=== PATIENT | male | born 1940 | race African-American/Black ===

== ENCOUNTER → 2017-06-06 | Outpatient (CLI) | payer BC, MEDICARE ==
[~2017-06-06] MED LIST: AMLO10TA80 PO; ASPI-1159 PO; FOLI-43 PO; FOSI20TA3 PO; FURO80TA87 PO; GUAN1TAB PO; MAGN500C4 PO; OMEP20TA15 PO; POTA20TA12 PO; RIVA10TA PO; SERT25TA74 PO; SPIR25TA4 PO; ZET10 PO; amiodarone
== END | disposition home or self-care (01) ==
LOC: PVL 13:04
DX: I25.10 Atherosclerotic heart disease of native coronary artery without angina pectoris (principal); E78.5 Hyperlipidemia, unspecified; I12.9 Hypertensive chronic kidney disease with stage 1 through stage 4 chronic kidney disease, or unspecified chronic kidney disease; N18.9 Chronic kidney disease, unspecified
CPT/HCPCS: 93922

== ENCOUNTER → 2017-09-25 | Outpatient (CLI) | payer BC, MEDICARE ==
[~2017-09-25] MED LIST changes: -SPIR25TA4 PO; +SPIR25TA6 PO
== END | disposition home or self-care (01) ==
LOC: PVL 12:45
DX: I73.9 Peripheral vascular disease, unspecified (principal); E78.5 Hyperlipidemia, unspecified; I11.0 Hypertensive heart disease with heart failure; I50.9 Heart failure, unspecified; E11.9 Type 2 diabetes mellitus without complications; Z79.82 Long term (current) use of aspirin; Z79.899 Other long term (current) drug therapy
CPT/HCPCS: 93923

== ENCOUNTER 2019-09-15 15:46 | Inpatient (IN) | payer BC, MEDICARE ==
[~2019-09-15] VITALS: Ht 182.9 cm; Wt 111.1 kg
[~2019-09-15 15:46] MED LIST changes: -ASPI-1159 PO; +ASPI-1497 PO; +EZET10TA13 PO; -FOSI20TA3 PO; +FOSI20TA66 PO; -ZET10 PO
[2019-09-15] MEDS ORDERED: SODIUM CHLORIDE 0.9% 1,000 ML IV ONE (16:12)
[2019-09-15] MEDS ORDERED: VANCOMYCIN 1 G PREMIX 200 ML IV ONE (16:15)
[2019-09-15] MEDS ORDERED: PIPERACILLIN/TAZ 3.375G PREMIX 50 ML IV ONE (16:15)
[2019-09-15 16:28] LABS: CLARITY URINE CLEAR (CLEAR); COLOR URINE YELLOW (YELLOW); KETONES URINE NEGATIVE (NEGATIVE); LEUKOCYTE ESTERASE URINE NEGATIVE (NEGATIVE); NITRITE URINE NEGATIVE (NEGATIVE); OCCULT BLOOD URINE 1+ (NEGATIVE); PROTEIN URINE 2+ (NEGATIVE); SPECIFIC GRAVITY URINE 1.016 (1.005-1.030); UROBILINOGEN URINE 0.2 E.U./dL (0.2-1.0)
[2019-09-15 16:49] LABS: BASOPHILS % 0.6 % (0.0-2.0); EOSINOPHILS % 0.5 % (0.0-5.0); HEMOGLOBIN. 11.7 g/dL (14.0-18.0); LYMPHOCYTES % 7.6 % (20.0-50.0); MEAN CORPUSCULAR HEMOGLOBIN 30.4 pg (28.0-32.0); MEAN CORPUSCULAR VOLUME 91.2 fL (80.0-94.0); MEAN PLATELET VOLUME 9.1 fl (7.4-10.4); MONOCYTES % 7.9 % (2.0-8.0); NEUTROPHILS % 83.4 % (40.0-76.0); PLATELET 248 x1000/uL (130-400); RED BLOOD CELL COUNT 3.84 mill/uL (4.7-6.1); RED CELL DISTRIBUTION WIDTH 14.1 % (11.6-14.6)
[2019-09-15 16:53] LABS: CHLORIDE 99 mEq/L (98-107)
[2019-09-15 16:55] LABS: INR 1.4; PROTHROMBIN TIME 14.3 sec (9.6-11.0)
[2019-09-15 17:00] LABS: BETA HYDROXYBUTYRATE 0.4 mMol/L (0.0-0.3)
[2019-09-15] MEDS ORDERED: INSULIN REGULAR (HUMULIN R) 300UNITS/3ML SUBCUT NR (18:45)
[2019-09-15] MEDS ORDERED: PIPERACILLIN/TAZOBACTAM 3.375 G in DEXT 5% WATER 100 ML IV SCH (19:15)
[2019-09-15] MEDS ORDERED: INSULIN GLARGINE UD 100 UNITS/ML SYR SUBCUT ONE (19:15)
[2019-09-15] MEDS ORDERED: DEXTROSE 50% WATER 50ML SYRINGE IV PRN (19:15)
[2019-09-15] MEDS ORDERED: ONDANSETRON HCL 4MG/2ML INJ IV PRN (19:15)
[2019-09-15] MEDS ORDERED: VANCOMYCIN 500 MG PREMIX 100 ML IV SCH ×2 (20:00→23:45)
[2019-09-15] MEDS ORDERED: LORAZEPAM 2MG/ML CPJ IV ONE (20:00)
[2019-09-15] MEDS: INSULIN LISPRO 100 UNITS/ML SUBCUT SCH (20:54)
[2019-09-15] MEDS ORDERED: INSULIN GLARGINE UD 100 UNITS/ML SYR SUBCUT SCH (21:00)
[2019-09-15 21:49] VITALS: BP 159/66
[2019-09-15] MEDS: BLOOD SUGAR DIAGNOSTIC STRIP TEST SCH (21:57)
[2019-09-15 22:27] VITALS: BP 159/66
[2019-09-15] MEDS ORDERED: PIPERACILLIN/TAZOBACTAM 2.25 G in DEXTROSE 5% WATER 50 ML IV SCH (23:00)
[2019-09-15] MEDS: SODIUM CHLORIDE 0.9% 1,000 ML IV SCH (23:49)
[2019-09-15] MEDS: INSULIN GLARGINE UD 100 UNITS/ML SYR SUBCUT SCH (23:49)
[2019-09-16] VITALS: BP 182/83
[2019-09-16] MEDS: CLONIDINE 0.1MG TABLET PO PRN ×2 (00:38→23:53)
[2019-09-16] MEDS: PIPERACILLIN/TAZOBACTAM 2.25 G in DEXTROSE 5% WATER 50 ML IV SCH ×5 (00:38→23:30)
[2019-09-16] MEDS ORDERED: AMLO5TAB88 PO (01:47)
[2019-09-16] MEDS ORDERED: FURO80TA3 PO (01:47)
[2019-09-16] MEDS ORDERED: TOPUD MT (01:59)
[2019-09-16] MEDS ORDERED: ROSU20TA2 PO (01:59)
[2019-09-16] MEDS ORDERED: SILV50CR31 TP (01:59)
[2019-09-16] MEDS ORDERED: MAGN64TA7 PO (01:59)
[2019-09-16] MEDS ORDERED: FOLI-43 PO (01:59)
[2019-09-16] MEDS ORDERED: FOSI40TA5 PO (01:59)
[2019-09-16] MEDS ORDERED: AMI2 PO (01:59)
[2019-09-16] MEDS ORDERED: CLON1PAT12 TP (01:59)
[2019-09-16 04:00] VITALS: BP 156/75
[2019-09-16] MEDS: ACETAMINOPHEN 325MG TABLET PO PRN ×2 (04:39→23:52)
[2019-09-16] MEDS: INSULIN LISPRO 100 UNITS/ML SUBCUT SCH ×4 (06:31→21:46)
[2019-09-16] MEDS: BLOOD SUGAR DIAGNOSTIC STRIP TEST SCH ×4 (06:41→21:34)
[2019-09-16 06:45] LABS: HEMATOCRIT. 32.4 % (42.0-52.0); HEMOGLOBIN. 10.9 g/dL (14.0-18.0); MEAN CORPUSCULAR HEMOGLOBIN 30.4 pg (28.0-32.0); MEAN PLATELET VOLUME 9.3 fl (7.4-10.4); PLATELET 213 x1000/uL (130-400); RED BLOOD CELL COUNT 3.59 mill/uL (4.7-6.1); RED CELL DISTRIBUTION WIDTH 14.5 % (11.6-14.6)
[2019-09-16 07:28] LABS: *AMPHETAMINES SCREEN URINE NEGATIVE (NEGATIVE); *BARBITURATES SCREEN URINE NEGATIVE (NEGATIVE); *BENZODIAZEPINES SCREEN URINE NEGATIVE (NEGATIVE); *COCAINE SCREEN URINE NEGATIVE (NEGATIVE); METHADONE URINE SCREEN NEGATIVE (NEGATIVE)
[2019-09-16 07:29] LABS: CANNABINOID URINE SCREEN NEGATIVE (NEGATIVE); OPIATES URINE SCREEN PRESUMTIVE POSITIVE (NEGATIVE); PHENCYCLIDINE URINE SCREEN NEGATIVE (NEGATIVE)
[2019-09-16 08:00] VITALS: BP 153/63
[2019-09-16] MEDS ORDERED: POTASSIUM CHLORIDE 20MEQ TABLET SR PO NR (08:30)
[2019-09-16] MEDS ORDERED: ENOXAPARIN 40MG/0.4ML SYR SUBCUT SCH (09:00)
[2019-09-16] MEDS ORDERED: VANCOMYCIN 1 G PREMIX 200 ML IV NR (09:30)
[2019-09-16] MEDS: INSULIN GLARGINE UD 100 UNITS/ML SYR SUBCUT SCH ×2 (09:42→21:46)
[2019-09-16] MEDS: AMLODIPINE 10MG TABLET PO SCH (09:43)
[2019-09-16 12:00] VITALS: BP 139/55
[2019-09-16] MEDS: FUROSEMIDE 100MG/10ML VIAL IVP SCH ×2 (12:59→17:20)
[2019-09-16] MEDS: AMIODARONE HCL 200 MG TABLET PO SCH (12:59)
[2019-09-16 16:00] VITALS: BP 152/68
[2019-09-16] MEDS: SODIUM CHLORIDE 0.9% 1,000 ML IV SCH (17:24)
[2019-09-16 20:00] VITALS: BP 151/73
[2019-09-16] MEDS: HYDRALAZINE HCL 10MG TABLET PO SCH (21:45)
[2019-09-17] VITALS: BP 164/63
[2019-09-17] MEDS: SODIUM CHLORIDE 0.9% 1,000 ML IV SCH (02:39)
[2019-09-17 04:00] VITALS: BP 148/69
[2019-09-17] MEDS: PIPERACILLIN/TAZOBACTAM 2.25 G in DEXTROSE 5% WATER 50 ML IV SCH ×4 (05:22→23:44)
[2019-09-17] MEDS: BLOOD SUGAR DIAGNOSTIC STRIP TEST SCH ×4 (06:13→21:13)
[2019-09-17] MEDS ORDERED: NITROGLYCERIN 0.2MG/HR PATCH TOP ONE (06:15)
[2019-09-17] MEDS: INSULIN LISPRO 100 UNITS/ML SUBCUT SCH ×4 (06:25→21:15)
[2019-09-17] MEDS ORDERED: VANCOMYCIN HCL 1 GM/VIAL ONE (06:57)
[2019-09-17] MEDS ORDERED: BUPIVACAINE HCL/PF 0.25% (2.5MG/ML) 10ML ONE (06:57)
[2019-09-17] MEDS ORDERED: BACITRACIN 50,000 UNITS/VIAL ONE (06:57)
[2019-09-17] MEDS ORDERED: LIDOCAINE HCL 1% 20ML VIAL (Pyxis) INJ ONE (06:57)
[2019-09-17] MEDS ORDERED: HYDROMORPHONE HCL/PF 2MG/ML (OR) ONE (07:28)
[2019-09-17] MEDS ORDERED: MIDAZOLAM HCL 5 MG/5 ML VIAL ONE (07:28)
[2019-09-17 07:52] LABS: BASOPHILS % 0.3 % (0.0-2.0); EOSINOPHILS % 1.1 % (0.0-5.0); HEMATOCRIT. 32.9 % (42.0-52.0); HEMOGLOBIN. 10.9 g/dL (14.0-18.0); LYMPHOCYTES % 7.2 % (20.0-50.0); MEAN CORPUSCULAR VOLUME 90.9 fL (80.0-94.0); MEAN PLATELET VOLUME 9.2 fl (7.4-10.4); MONOCYTES % 8.8 % (2.0-8.0); NEUTROPHILS % 82.6 % (40.0-76.0); PLATELET 236 x1000/uL (130-400); RED BLOOD CELL COUNT 3.62 mill/uL (4.7-6.1); RED CELL DISTRIBUTION WIDTH 14.3 % (11.6-14.6)
[2019-09-17 07:57] LABS: CHLORIDE 110 mEq/L (98-107)
[2019-09-17 08:11] LABS: LDL CHOLESTEROL 24 mg/dL (5-100)
[2019-09-17 08:13] LABS: HDL CHOLESTEROL 19 mg/dL (40-59); T4 FREE 1.31 ng/dL (0.76-1.46)
[2019-09-17] MEDS ORDERED: MEPERIDINE HCL/PF 25MG/ML CPJ IV PRN (08:15)
[2019-09-17] MEDS ORDERED: LABETALOL 5MG/ML SYR 20 MG/4 ML SYRINGE IV PRN (08:15)
[2019-09-17] MEDS ORDERED: ONDANSETRON HCL 4MG/2ML INJ IV PRN (08:15)
[2019-09-17] MEDS ORDERED: HYDROMORPHONE HCL/PF 2MG/ML CPJ IV PRN (08:15)
[2019-09-17] MEDS ORDERED: POTASSIUM CHLORIDE 20MEQ/PACKET PO NR (08:45)
[2019-09-17 08:56] LABS: FOLIC ACID (FOLATE) SERUM >20 ng/mL ng/mL (>5.38)
[2019-09-17] MEDS: HYDRALAZINE HCL 10MG TABLET PO SCH ×3 (09:00→21:14)
[2019-09-17] MEDS: AMLODIPINE 10MG TABLET PO SCH (09:00)
[2019-09-17] MEDS: AMIODARONE HCL 200 MG TABLET PO SCH (09:00)
[2019-09-17 09:09] LABS: VITAMIN B12 SERUM 1593 pg/mL (211-911)
[2019-09-17] MEDS ORDERED: POTASSIUM CHLORIDE INJ 40 MEQ in DEXT 5% WATER 250 ML IV NR (10:00)
[2019-09-17] MEDS: FUROSEMIDE 100MG/10ML VIAL IVP SCH ×2 (10:36→17:58)
[2019-09-17] MEDS: INSULIN GLARGINE UD 100 UNITS/ML SYR SUBCUT SCH ×2 (10:37→21:15)
[2019-09-17 12:00] VITALS: BP 113/67
[2019-09-17 13:19] LABS: PLATELET ESTIMATE NORMAL
[2019-09-17 16:00] VITALS: BP 155/77
[2019-09-17] MEDS ORDERED: TETANUS, DIPHTHERIA, PERTUSSIS VAC/PF 0.5ML (>7YR OLD) IM ONE (16:30)
[2019-09-17 20:00] VITALS: BP 143/74
[2019-09-18] VITALS: BP 157/65
[2019-09-18] MEDS: SODIUM CHLORIDE 0.9% 1,000 ML IV SCH (02:27)
[2019-09-18 04:00] VITALS: BP 139/73
[2019-09-18] MEDS: HYDRALAZINE HCL 10MG TABLET PO SCH ×3 (05:37→21:28)
[2019-09-18] MEDS: PIPERACILLIN/TAZOBACTAM 2.25 G in DEXTROSE 5% WATER 50 ML IV SCH ×3 (05:37→17:10)
[2019-09-18] MEDS: INSULIN LISPRO 100 UNITS/ML SUBCUT SCH ×4 (06:54→20:40)
[2019-09-18] MEDS: BLOOD SUGAR DIAGNOSTIC STRIP TEST SCH ×4 (06:54→20:09)
[2019-09-18 07:47] LABS: BASOPHILS % 0.6 % (0.0-2.0); EOSINOPHILS % 1.1 % (0.0-5.0); HEMATOCRIT. 32.3 % (42.0-52.0); HEMOGLOBIN. 10.8 g/dL (14.0-18.0); LYMPHOCYTES % 7.6 % (20.0-50.0); MEAN CORPUSCULAR HEMOGLOBIN 30.1 pg (28.0-32.0); MEAN CORPUSCULAR VOLUME 89.9 fL (80.0-94.0); MEAN PLATELET VOLUME 9.3 fl (7.4-10.4); MONOCYTES % 6.2 % (2.0-8.0); NEUTROPHILS % 84.5 % (40.0-76.0); PLATELET 248 x1000/uL (130-400); RED BLOOD CELL COUNT 3.59 mill/uL (4.7-6.1); RED CELL DISTRIBUTION WIDTH 14.3 % (11.6-14.6)
[2019-09-18 08:00] VITALS: BP 137/81
[2019-09-18] MEDS: FUROSEMIDE 100MG/10ML VIAL IVP SCH ×2 (08:54→17:10)
[2019-09-18] MEDS: AMIODARONE HCL 200 MG TABLET PO SCH (08:55)
[2019-09-18] MEDS: ASPIRIN 81MG TABLET PO SCH (08:55)
[2019-09-18] MEDS: POTASSIUM CHLORIDE 20MEQ TABLET SR PO SCH ×3 (08:55→15:23)
[2019-09-18] MEDS: AMLODIPINE 10MG TABLET PO SCH (08:55)
[2019-09-18] MEDS: INSULIN GLARGINE UD 100 UNITS/ML SYR SUBCUT SCH ×2 (10:17→21:28)
[2019-09-18 12:00] VITALS: BP 153/72
[2019-09-18] MEDS: HYDROCODONE/ACETAMINOPHEN 5/325MG TABLET PO PRN ×2 (12:37→21:27)
[2019-09-18 16:00] VITALS: BP 123/61
[2019-09-18 20:00] VITALS: BP 163/76
[2019-09-19] VITALS: BP 157/76
[2019-09-19] MEDS: PIPERACILLIN/TAZOBACTAM 2.25 G in DEXTROSE 5% WATER 50 ML IV SCH ×4 (00:53→17:07)
[2019-09-19 04:00] VITALS: BP 154/72
[2019-09-19] MEDS: SODIUM CHLORIDE 0.9% 1,000 ML IV SCH ×2 (04:50→23:00)
[2019-09-19] MEDS: HYDRALAZINE HCL 10MG TABLET PO SCH ×3 (06:23→22:00)
[2019-09-19] MEDS: BLOOD SUGAR DIAGNOSTIC STRIP TEST SCH ×4 (06:51→20:35)
[2019-09-19] MEDS: INSULIN LISPRO 100 UNITS/ML SUBCUT SCH ×4 (06:51→21:34)
[2019-09-19 07:07] LABS: BASOPHILS % 0.5 % (0.0-2.0); HEMATOCRIT. 32.9 % (42.0-52.0); HEMOGLOBIN. 10.9 g/dL (14.0-18.0); MEAN CORPUSCULAR HEMOGLOBIN 29.9 pg (28.0-32.0); MEAN CORPUSCULAR VOLUME 89.9 fL (80.0-94.0); MEAN PLATELET VOLUME 9.1 fl (7.4-10.4); MONOCYTES % 7.1 % (2.0-8.0); NEUTROPHILS % 80.4 % (40.0-76.0); PLATELET 276 x1000/uL (130-400); RED BLOOD CELL COUNT 3.66 mill/uL (4.7-6.1)
[2019-09-19 08:00] VITALS: BP 156/62
[2019-09-19] MEDS: ASPIRIN 81MG TABLET PO SCH (08:29)
[2019-09-19] MEDS: FUROSEMIDE 40MG/4ML VIAL IVP SCH ×2 (08:29→17:07)
[2019-09-19] MEDS: AMLODIPINE 10MG TABLET PO SCH (08:29)
[2019-09-19] MEDS: AMIODARONE HCL 200 MG TABLET PO SCH (08:29)
[2019-09-19] MEDS ORDERED: POTASSIUM CHLORIDE INJ 40 MEQ in DEXT 5% WATER 250 ML IV SCH (11:00)
[2019-09-19] MEDS: POTASSIUM CHLORIDE 10MEQ TABLET SR PO SCH (11:02)
[2019-09-19] MEDS: INSULIN GLARGINE UD 100 UNITS/ML SYR SUBCUT SCH ×2 (11:03→21:35)
[2019-09-19] MEDS: CLONIDINE 0.1MG TABLET PO PRN ×2 (11:47→12:20)
[2019-09-19 12:00] VITALS: BP 179/81
[2019-09-19] MEDS: CLONIDINE 0.2MG TABLET PO SCH ×2 (14:00→22:00)
[2019-09-19 16:00] VITALS: BP 150/76
[2019-09-19] MEDS ORDERED: MAGNESIUM 2 G PREMIX 50 ML IV NR (20:00)
[2019-09-19 21:44] VITALS: BP 139/67
[2019-09-20] MEDS: PIPERACILLIN/TAZOBACTAM 2.25 G in DEXTROSE 5% WATER 50 ML IV SCH ×4 (00:24→17:19)
[2019-09-20] MEDS: HYDRALAZINE HCL 10MG TABLET PO SCH ×4 (00:24→20:45)
[2019-09-20] MEDS: CLONIDINE 0.2MG TABLET PO SCH ×4 (00:24→20:44)
[2019-09-20 00:39] VITALS: BP 175/77
[2019-09-20 04:00] VITALS: BP 157/70
[2019-09-20 06:13] LABS: BASOPHILS % 0.4 % (0.0-2.0); EOSINOPHILS % 2.3 % (0.0-5.0); HEMATOCRIT. 31.5 % (42.0-52.0); HEMOGLOBIN. 10.5 g/dL (14.0-18.0); LYMPHOCYTES % 11.3 % (20.0-50.0); MEAN CORPUSCULAR HEMOGLOBIN 29.9 pg (28.0-32.0); MEAN CORPUSCULAR VOLUME 89.5 fL (80.0-94.0); MEAN PLATELET VOLUME 8.9 fl (7.4-10.4); MONOCYTES % 7.4 % (2.0-8.0); NEUTROPHILS % 78.6 % (40.0-76.0); PLATELET 290 x1000/uL (130-400); RED BLOOD CELL COUNT 3.52 mill/uL (4.7-6.1); RED CELL DISTRIBUTION WIDTH 14.1 % (11.6-14.6)
[2019-09-20] MEDS: BLOOD SUGAR DIAGNOSTIC STRIP TEST SCH ×4 (06:17→20:45)
[2019-09-20] MEDS: INSULIN LISPRO 100 UNITS/ML SUBCUT SCH ×4 (06:18→20:47)
[2019-09-20 08:00] VITALS: BP 149/68
[2019-09-20] MEDS: ASPIRIN 81MG TABLET PO SCH (08:40)
[2019-09-20] MEDS: AMIODARONE HCL 200 MG TABLET PO SCH (08:40)
[2019-09-20] MEDS: AMLODIPINE 10MG TABLET PO SCH (08:40)
[2019-09-20] MEDS: POTASSIUM CHLORIDE 10MEQ TABLET SR PO SCH (08:40)
[2019-09-20] MEDS: FUROSEMIDE 40MG/4ML VIAL IVP SCH ×2 (08:40→17:18)
[2019-09-20] MEDS: INSULIN GLARGINE UD 100 UNITS/ML SYR SUBCUT SCH ×2 (10:00→21:25)
[2019-09-20 12:00] VITALS: BP 113/74
[2019-09-20 16:00] VITALS: BP 159/75
[2019-09-20] MEDS: POTASSIUM CHLORIDE 20MEQ TABLET SR PO SCH (17:18)
[2019-09-20 20:00] VITALS: BP 149/72
[2019-09-20] MEDS: ENOXAPARIN 30MG/0.3ML SYR SUBCUT SCH (20:45)
[2019-09-20] MEDS: SODIUM CHLORIDE 0.9% 1,000 ML IV SCH (21:26)
[2019-09-21] VITALS: BP 158/73
[2019-09-21] MEDS ORDERED: HYDROCODONE/ACETAMINOPHEN 5/325MG TABLET PO PRN (03:30)
[2019-09-21 04:00] VITALS: BP 157/79
[2019-09-21] MEDS: CLONIDINE 0.2MG TABLET PO SCH ×3 (05:53→21:09)
[2019-09-21] MEDS: INSULIN LISPRO 100 UNITS/ML SUBCUT SCH ×4 (05:53→21:14)
[2019-09-21] MEDS: BLOOD SUGAR DIAGNOSTIC STRIP TEST SCH ×4 (05:53→21:01)
[2019-09-21] MEDS: HYDRALAZINE HCL 10MG TABLET PO SCH ×3 (05:53→21:11)
[2019-09-21 07:10] LABS: BASOPHILS % 0.5 % (0.0-2.0); EOSINOPHILS % 2.9 % (0.0-5.0); HEMATOCRIT. 30.5 % (42.0-52.0); HEMOGLOBIN. 10.1 g/dL (14.0-18.0); LYMPHOCYTES % 13.4 % (20.0-50.0); MEAN CORPUSCULAR HEMOGLOBIN 29.8 pg (28.0-32.0); MEAN CORPUSCULAR VOLUME 89.5 fL (80.0-94.0); MEAN PLATELET VOLUME 8.7 fl (7.4-10.4); MONOCYTES % 7.5 % (2.0-8.0); NEUTROPHILS % 75.7 % (40.0-76.0); PLATELET 308 x1000/uL (130-400); RED CELL DISTRIBUTION WIDTH 14.1 % (11.6-14.6)
[2019-09-21 08:00] VITALS: BP 154/70
[2019-09-21] MEDS: AMIODARONE HCL 200 MG TABLET PO SCH (09:32)
[2019-09-21] MEDS: ASPIRIN 81MG TABLET PO SCH (09:32)
[2019-09-21] MEDS: POTASSIUM CHLORIDE 20MEQ TABLET SR PO SCH ×2 (09:32→17:49)
[2019-09-21] MEDS: AMLODIPINE 10MG TABLET PO SCH (09:32)
[2019-09-21] MEDS: ENOXAPARIN 30MG/0.3ML SYR SUBCUT SCH ×2 (09:32→21:11)
[2019-09-21] MEDS: FUROSEMIDE 40MG/4ML VIAL IVP SCH ×2 (10:54→17:49)
[2019-09-21] MEDS: INSULIN GLARGINE UD 100 UNITS/ML SYR SUBCUT SCH ×2 (10:55→22:04)
[2019-09-21 12:00] VITALS: BP 168/79
[2019-09-21 16:00] VITALS: BP 138/72
[2019-09-21 20:00] VITALS: BP 146/79
[2019-09-21] MEDS: AMOXICILLIN/POTASSIUM CLAVULANATE 500/125MG TAB PO SCH (21:08)
[2019-09-22] VITALS (8 sets, daily range): BP systolic 125–164; BP diastolic 53–78
[2019-09-22] MEDS: CLONIDINE 0.2MG TABLET PO SCH ×3 (05:52→20:21)
[2019-09-22] MEDS: HYDRALAZINE HCL 10MG TABLET PO SCH (05:53)
[2019-09-22] MEDS: BLOOD SUGAR DIAGNOSTIC STRIP TEST SCH ×4 (05:53→20:21)
[2019-09-22] MEDS: INSULIN LISPRO 100 UNITS/ML SUBCUT SCH ×4 (07:15→20:36)
[2019-09-22] MEDS: AMLODIPINE 10MG TABLET PO SCH (09:06)
[2019-09-22] MEDS: ASPIRIN 81MG TABLET PO SCH (09:06)
[2019-09-22] MEDS: FUROSEMIDE 40MG/4ML VIAL IVP SCH ×2 (09:06→17:18)
[2019-09-22] MEDS: AMOXICILLIN/POTASSIUM CLAVULANATE 500/125MG TAB PO SCH ×2 (09:06→20:21)
[2019-09-22] MEDS: AMIODARONE HCL 200 MG TABLET PO SCH (09:06)
[2019-09-22] MEDS: POTASSIUM CHLORIDE 20MEQ TABLET SR PO SCH ×2 (09:07→17:18)
[2019-09-22] MEDS: ENOXAPARIN 30MG/0.3ML SYR SUBCUT SCH ×2 (09:07→20:22)
[2019-09-22] MEDS: MORPHINE SULFATE 2 MG/ML CPJ (NOT FOR IM USE) IV PRN ×2 (09:10→20:20)
[2019-09-22] MEDS: INSULIN GLARGINE UD 100 UNITS/ML SYR SUBCUT SCH ×2 (10:37→20:37)
[2019-09-22 12:22] LABS: CHLORIDE 106 mEq/L (98-107)
[2019-09-22] MEDS: HYDRALAZINE HCL 25MG TABLET PO SCH ×2 (14:22→20:21)
== END 2019-09-22 21:36 | DRG 853 ==
LOC: ER 15:46 → 5WST 18:36 → EDBEDREQ 18:44 → EDBEDREQSVC 18:44 → ENRESERV 20:29
PROVIDERS: ADMIT Internal Medicine; ATTEND Internal Medicine
PROC: 0Y6T0Z0 Detachment at Right 3rd Toe, Complete, Open Approach (ICD-10-PCS; principal; 2019-09-17)
DX: A41.1 Sepsis due to other specified staphylococcus (principal); G92 Toxic encephalopathy; I50.43 Acute on chronic combined systolic (congestive) and diastolic (congestive) heart failure; E11.52 Type 2 diabetes mellitus with diabetic peripheral angiopathy with gangrene; I13.0 Hypertensive heart and chronic kidney disease with heart failure and stage 1 through stage 4 chronic kidney disease, or unspecified chronic kidney disease; E44.0 Moderate protein-calorie malnutrition; I96 Gangrene, not elsewhere classified; I42.9 Cardiomyopathy, unspecified; I44.2 Atrioventricular block, complete; M86.8X7 Other osteomyelitis, ankle and foot; A41.9 Sepsis, unspecified organism; E11.22 Type 2 diabetes mellitus with diabetic chronic kidney disease; E11.621 Type 2 diabetes mellitus with foot ulcer; E11.65 Type 2 diabetes mellitus with hyperglycemia; D64.9 Anemia, unspecified; E11.69 Type 2 diabetes mellitus with other specified complication; E11.649 Type 2 diabetes mellitus with hypoglycemia without coma; E87.8 Other disorders of electrolyte and fluid balance, not elsewhere classified; E78.5 Hyperlipidemia, unspecified; E66.9 Obesity, unspecified; I48.0 Paroxysmal atrial fibrillation; I25.10 Atherosclerotic heart disease of native coronary artery without angina pectoris; Z20.828 Contact with and (suspected) exposure to other viral communicable diseases; L97.519 Non-pressure chronic ulcer of other part of right foot with unspecified severity; I44.7 Left bundle-branch block, unspecified; E87.5 Hyperkalemia; I70.202 Unspecified atherosclerosis of native arteries of extremities, left leg; A41.4 Sepsis due to anaerobes; E83.42 Hypomagnesemia; L03.031 Cellulitis of right toe; N18.3 Chronic kidney disease, stage 3 (moderate); I69.30 Unspecified sequelae of cerebral infarction; Z95.0 Presence of cardiac pacemaker; Z95.5 Presence of coronary angioplasty implant and graft; Z79.4 Long term (current) use of insulin; Z68.32 Body mass index [BMI] 32.0-32.9, adult; Z79.82 Long term (current) use of aspirin
CPT/HCPCS: 36415; 71045; 73630; 80048; 80053; 80061; 80202; 80305; 81003; 82010; 82140; 82607; 82746; 82962; 83036; 83605; 83735; 83880; 84145; 84439; 84443; 84481; 84484; 85025; 87070; 87075; 87077; 87186; 88302; 88311; 90715; 92610; 93005; 93306; 93880; 93923; 96365; 97110; 97163; 97166; 97530; 97535; 99291; J1170; J1650; J1815; J1940; J2060; J2250; J2270; J2543; J3370; J3475; J3480; J3490; J7030; J7060; U0003-CS

== ENCOUNTER 2019-09-22 21:22 | Inpatient (IN) | payer BC, MEDICARE ==
[~2019-09-22] VITALS: Ht 188 cm; Wt 123.8 kg
[2019-09-22 20:00] VITALS: BP 145/58
[~2019-09-22 21:22] MED LIST changes: +AMI2 PO; -AMLO10TA80 PO; +AMLO5TAB88 PO; +CLON1PAT12 TP; -FOSI20TA66 PO; +FOSI40TA5 PO; +FURO80TA3 PO; +INSULIN GLARGINE UD 100 UNITS/ML SYR SUBCUT SCH; -MAGN500C4 PO; +MAGN64TA7 PO; +ROSU20TA2 PO; +SILV50CR31 TP; +TOPUD MT; -amiodarone
[2019-09-22 22:00] VITALS: BP 145/58
[2019-09-22] MEDS ORDERED: DEXTROSE 50% WATER 50ML SYRINGE IV PRN (22:15)
[2019-09-22] MEDS ORDERED: CLONIDINE 0.1MG TABLET PO PRN (22:15)
[2019-09-22] MEDS ORDERED: MORPHINE SULFATE 2 MG/ML CPJ (NOT FOR IM USE) IV PRN (22:15)
[2019-09-22] MEDS ORDERED: ACETAMINOPHEN 325MG TABLET PO PRN (22:15)
[2019-09-22] MEDS ORDERED: ONDANSETRON HCL 4MG/2ML INJ IV PRN (22:15)
[2019-09-23] MEDS: CLONIDINE 0.2MG TABLET PO SCH ×3 (06:31→21:17)
[2019-09-23] MEDS: BLOOD SUGAR DIAGNOSTIC STRIP TEST SCH ×4 (06:32→21:18)
[2019-09-23] MEDS: HYDRALAZINE HCL 25MG TABLET PO SCH ×3 (06:32→21:18)
[2019-09-23] MEDS: INSULIN LISPRO 100 UNITS/ML SUBCUT SCH ×4 (06:32→21:00)
[2019-09-23 06:51] LABS: BASOPHILS % 0.6 % (0.0-2.0); EOSINOPHILS % 1.3 % (0.0-5.0); HEMATOCRIT. 31.2 % (42.0-52.0); HEMOGLOBIN. 10.4 g/dL (14.0-18.0); LYMPHOCYTES % 13.8 % (20.0-50.0); MEAN CORPUSCULAR HEMOGLOBIN 30.1 pg (28.0-32.0); MEAN PLATELET VOLUME 8.7 fl (7.4-10.4); MONOCYTES % 6.9 % (2.0-8.0); NEUTROPHILS % 77.4 % (40.0-76.0); PLATELET 365 x1000/uL (130-400); RED BLOOD CELL COUNT 3.47 mill/uL (4.7-6.1); RED CELL DISTRIBUTION WIDTH 14.2 % (11.6-14.6)
[2019-09-23 08:16] VITALS: BP 142/60
[2019-09-23] MEDS: AMIODARONE HCL 200 MG TABLET PO SCH (09:00)
[2019-09-23] MEDS ORDERED: POTASSIUM CHLORIDE 20MEQ TABLET SR PO SCH (09:00)
[2019-09-23] MEDS: AMOXICILLIN/POTASSIUM CLAVULANATE 500/125MG TAB PO SCH ×2 (09:00→21:17)
[2019-09-23] MEDS: FUROSEMIDE 40MG TABLET PO SCH ×2 (09:00→16:43)
[2019-09-23] MEDS: POTASSIUM CHLORIDE 20MEQ TABLET SR PO SCH ×2 (09:01→16:43)
[2019-09-23] MEDS: ASPIRIN 81MG TABLET PO SCH (09:01)
[2019-09-23] MEDS: AMLODIPINE 10MG TABLET PO SCH (09:01)
[2019-09-23] MEDS: ENOXAPARIN 30MG/0.3ML SYR SUBCUT SCH ×2 (09:02→21:18)
[2019-09-23] MEDS ORDERED: INSULIN GLARGINE UD 100 UNITS/ML SYR SUBCUT SCH ×2 (10:00→22:00)
[2019-09-23] MEDS ORDERED: HYDROCODONE/ACETAMINOPHEN 5/325MG TABLET PO PRN (14:15)
[2019-09-23] MEDS: LACTULOSE 20G/30ML UDC PO SCH ×3 (16:43→23:56)
[2019-09-23 20:00] VITALS: BP 144/67
[2019-09-23] MEDS: INSULIN GLARGINE UD 100 UNITS/ML SYR SUBCUT SCH (21:31)
[2019-09-24] MEDS: LACTULOSE 20G/30ML UDC PO SCH ×3 (03:15→11:05)
[2019-09-24] MEDS: CLONIDINE 0.2MG TABLET PO SCH ×3 (05:42→21:40)
[2019-09-24] MEDS: HYDRALAZINE HCL 25MG TABLET PO SCH ×3 (05:42→21:37)
[2019-09-24] MEDS: BLOOD SUGAR DIAGNOSTIC STRIP TEST SCH ×4 (05:42→21:36)
[2019-09-24] MEDS: INSULIN LISPRO 100 UNITS/ML SUBCUT SCH ×4 (06:00→21:41)
[2019-09-24 06:49] LABS: BASOPHILS % 0.5 % (0.0-2.0); HEMATOCRIT. 29.3 % (42.0-52.0); HEMOGLOBIN. 9.9 g/dL (14.0-18.0); LYMPHOCYTES % 14.2 % (20.0-50.0); MEAN CORPUSCULAR HEMOGLOBIN 30.1 pg (28.0-32.0); MEAN CORPUSCULAR VOLUME 89.6 fL (80.0-94.0); MEAN PLATELET VOLUME 8.5 fl (7.4-10.4); MONOCYTES % 8.6 % (2.0-8.0); NEUTROPHILS % 74.7 % (40.0-76.0); PLATELET 347 x1000/uL (130-400); RED BLOOD CELL COUNT 3.27 mill/uL (4.7-6.1); RED CELL DISTRIBUTION WIDTH 14.8 % (11.6-14.6)
[2019-09-24 07:30] VITALS: BP 149/68
[2019-09-24] MEDS: AMLODIPINE 10MG TABLET PO SCH (08:57)
[2019-09-24] MEDS: AMIODARONE HCL 200 MG TABLET PO SCH (08:57)
[2019-09-24] MEDS: AMOXICILLIN/POTASSIUM CLAVULANATE 500/125MG TAB PO SCH ×2 (08:57→21:36)
[2019-09-24] MEDS: FUROSEMIDE 40MG TABLET PO SCH ×2 (08:57→17:02)
[2019-09-24] MEDS: ASPIRIN 81MG TABLET PO SCH (08:59)
[2019-09-24] MEDS: ENOXAPARIN 30MG/0.3ML SYR SUBCUT SCH ×2 (08:59→21:36)
[2019-09-24] MEDS: POTASSIUM CHLORIDE 20MEQ TABLET SR PO SCH ×2 (08:59→17:02)
[2019-09-24] MEDS: INSULIN GLARGINE UD 100 UNITS/ML SYR SUBCUT SCH ×2 (09:38→21:40)
[2019-09-24 13:41] VITALS: BP 145/64
[2019-09-24] MEDS: NA PHOS,M-B/NA PHOS,DI-BA ENEMA 118ML PR PRN (14:50)
[2019-09-24 20:00] VITALS: BP 138/67
[2019-09-25 06:33] LABS: BASOPHILS % 0.7 % (0.0-2.0); HEMATOCRIT. 28.5 % (42.0-52.0); HEMOGLOBIN. 9.5 g/dL (14.0-18.0); LYMPHOCYTES % 16.3 % (20.0-50.0); MEAN CORPUSCULAR HEMOGLOBIN 29.9 pg (28.0-32.0); MEAN CORPUSCULAR VOLUME 89.4 fL (80.0-94.0); MEAN PLATELET VOLUME 8.5 fl (7.4-10.4); MONOCYTES % 8.7 % (2.0-8.0); NEUTROPHILS % 72.3 % (40.0-76.0); PLATELET 366 x1000/uL (130-400); RED BLOOD CELL COUNT 3.19 mill/uL (4.7-6.1); RED CELL DISTRIBUTION WIDTH 14.3 % (11.6-14.6)
[2019-09-25] MEDS: BLOOD SUGAR DIAGNOSTIC STRIP TEST SCH ×4 (06:35→21:21)
[2019-09-25] MEDS: HYDRALAZINE HCL 25MG TABLET PO SCH ×3 (06:35→21:21)
[2019-09-25] MEDS: CLONIDINE 0.2MG TABLET PO SCH ×3 (06:35→21:22)
[2019-09-25] MEDS: INSULIN LISPRO 100 UNITS/ML SUBCUT SCH ×4 (06:48→21:23)
[2019-09-25 07:57] VITALS: BP 156/66
[2019-09-25] MEDS: ENOXAPARIN 30MG/0.3ML SYR SUBCUT SCH ×2 (08:14→21:21)
[2019-09-25] MEDS: AMOXICILLIN/POTASSIUM CLAVULANATE 500/125MG TAB PO SCH ×2 (08:14→21:20)
[2019-09-25] MEDS: POTASSIUM CHLORIDE 20MEQ TABLET SR PO SCH ×2 (08:14→17:16)
[2019-09-25] MEDS: AMIODARONE HCL 200 MG TABLET PO SCH (08:15)
[2019-09-25] MEDS: FUROSEMIDE 40MG TABLET PO SCH ×2 (08:15→17:16)
[2019-09-25] MEDS: ASPIRIN 81MG TABLET PO SCH (08:15)
[2019-09-25] MEDS: AMLODIPINE 10MG TABLET PO SCH (08:15)
[2019-09-25] MEDS: HYDROCODONE/ACETAMINOPHEN 5/325MG TABLET PO PRN ×2 (09:01→21:22)
[2019-09-25] MEDS: INSULIN GLARGINE UD 100 UNITS/ML SYR SUBCUT SCH ×2 (10:29→21:24)
[2019-09-25 21:00] VITALS: BP 153/73
[2019-09-26] MEDS: CLONIDINE 0.2MG TABLET PO SCH ×3 (05:33→21:05)
[2019-09-26] MEDS: INSULIN LISPRO 100 UNITS/ML SUBCUT SCH ×4 (05:33→21:15)
[2019-09-26] MEDS: HYDRALAZINE HCL 25MG TABLET PO SCH ×3 (05:33→21:05)
[2019-09-26] MEDS: BLOOD SUGAR DIAGNOSTIC STRIP TEST SCH ×4 (05:33→20:53)
[2019-09-26 06:21] LABS: BASOPHILS % 0.9 % (0.0-2.0); EOSINOPHILS % 2.6 % (0.0-5.0); HEMATOCRIT. 28.4 % (42.0-52.0); HEMOGLOBIN. 9.5 g/dL (14.0-18.0); LYMPHOCYTES % 17.4 % (20.0-50.0); MEAN CORPUSCULAR HEMOGLOBIN 29.9 pg (28.0-32.0); MEAN CORPUSCULAR VOLUME 89.4 fL (80.0-94.0); MEAN PLATELET VOLUME 8.4 fl (7.4-10.4); MONOCYTES % 8.2 % (2.0-8.0); NEUTROPHILS % 70.9 % (40.0-76.0); PLATELET 368 x1000/uL (130-400); RED BLOOD CELL COUNT 3.18 mill/uL (4.7-6.1); RED CELL DISTRIBUTION WIDTH 14.5 % (11.6-14.6)
[2019-09-26 08:00] VITALS: BP 145/79
[2019-09-26] MEDS: AMOXICILLIN/POTASSIUM CLAVULANATE 500/125MG TAB PO SCH ×2 (09:45→20:52)
[2019-09-26] MEDS: ASPIRIN 81MG TABLET PO SCH (09:45)
[2019-09-26] MEDS: FUROSEMIDE 40MG TABLET PO SCH ×2 (09:46→16:37)
[2019-09-26] MEDS: ENOXAPARIN 30MG/0.3ML SYR SUBCUT SCH ×2 (09:46→20:53)
[2019-09-26] MEDS: AMLODIPINE 10MG TABLET PO SCH (09:46)
[2019-09-26] MEDS: POTASSIUM CHLORIDE 20MEQ TABLET SR PO SCH ×2 (09:47→16:37)
[2019-09-26] MEDS: AMIODARONE HCL 200 MG TABLET PO SCH (09:47)
[2019-09-26] MEDS: INSULIN GLARGINE UD 100 UNITS/ML SYR SUBCUT SCH ×2 (10:09→21:14)
[2019-09-26] MEDS: HYDROCODONE/ACETAMINOPHEN 5/325MG TABLET PO PRN (13:44)
[2019-09-26] MEDS: BISACODYL 5MG TABLET PO PRN (16:37)
[2019-09-26 20:00] VITALS: BP 139/62
[2019-09-27] MEDS: BLOOD SUGAR DIAGNOSTIC STRIP TEST SCH ×4 (05:49→21:00)
[2019-09-27] MEDS: HYDRALAZINE HCL 25MG TABLET PO SCH ×3 (05:49→21:47)
[2019-09-27] MEDS: CLONIDINE 0.2MG TABLET PO SCH ×3 (05:49→21:47)
[2019-09-27] MEDS: INSULIN LISPRO 100 UNITS/ML SUBCUT SCH ×4 (06:24→21:57)
[2019-09-27 07:20] VITALS: BP 155/71
[2019-09-27] MEDS: AMOXICILLIN/POTASSIUM CLAVULANATE 500/125MG TAB PO SCH ×2 (09:47→21:47)
[2019-09-27] MEDS: FUROSEMIDE 40MG TABLET PO SCH ×2 (09:48→17:08)
[2019-09-27] MEDS: AMIODARONE HCL 200 MG TABLET PO SCH (09:48)
[2019-09-27] MEDS: AMLODIPINE 10MG TABLET PO SCH (09:48)
[2019-09-27] MEDS: POTASSIUM CHLORIDE 20MEQ TABLET SR PO SCH ×2 (09:48→17:08)
[2019-09-27] MEDS: ASPIRIN 81MG TABLET PO SCH (09:48)
[2019-09-27] MEDS: ENOXAPARIN 30MG/0.3ML SYR SUBCUT SCH (09:49)
[2019-09-27] MEDS: INSULIN GLARGINE UD 100 UNITS/ML SYR SUBCUT SCH ×2 (12:03→21:56)
[2019-09-27] MEDS: LACTULOSE 20G/30ML UDC PO SCH ×3 (12:30→20:31)
[2019-09-27] MEDS ORDERED: RIVAROXABAN 10 MG TABLET PO SCH (17:00)
[2019-09-27 20:00] VITALS: BP 151/72
[2019-09-27] MEDS: ENOXAPARIN 120MG/0.8ML SYR SUBCUT SCH (21:46)
[2019-09-28] MEDS: NA PHOS,M-B/NA PHOS,DI-BA ENEMA 118ML PR PRN (02:16)
[2019-09-28] MEDS: CLONIDINE 0.2MG TABLET PO SCH ×3 (06:07→21:58)
[2019-09-28] MEDS: HYDRALAZINE HCL 25MG TABLET PO SCH ×3 (06:08→23:45)
[2019-09-28] MEDS: BLOOD SUGAR DIAGNOSTIC STRIP TEST SCH ×4 (06:23→21:56)
[2019-09-28] MEDS: INSULIN LISPRO 100 UNITS/ML SUBCUT SCH ×4 (06:32→21:55)
[2019-09-28 07:02] LABS: BASOPHILS % 1.2 % (0.0-2.0); EOSINOPHILS % 1.6 % (0.0-5.0); HEMOGLOBIN. 9.7 g/dL (14.0-18.0); LYMPHOCYTES % 15.6 % (20.0-50.0); MEAN CORPUSCULAR HEMOGLOBIN 29.7 pg (28.0-32.0); MEAN CORPUSCULAR VOLUME 88.8 fL (80.0-94.0); MEAN PLATELET VOLUME 8.1 fl (7.4-10.4); MONOCYTES % 7.6 % (2.0-8.0); PLATELET 374 x1000/uL (130-400); RED BLOOD CELL COUNT 3.26 mill/uL (4.7-6.1); RED CELL DISTRIBUTION WIDTH 14.2 % (11.6-14.6)
[2019-09-28] MEDS: HYDROCODONE/ACETAMINOPHEN 5/325MG TABLET PO PRN (07:35)
[2019-09-28 08:05] VITALS: BP 146/71
[2019-09-28] MEDS: FUROSEMIDE 40MG TABLET PO SCH ×2 (08:27→17:00)
[2019-09-28] MEDS: BISACODYL 5MG TABLET PO PRN (08:27)
[2019-09-28] MEDS: ASPIRIN 81MG TABLET PO SCH (08:27)
[2019-09-28] MEDS: AMLODIPINE 10MG TABLET PO SCH (08:27)
[2019-09-28] MEDS: POTASSIUM CHLORIDE 20MEQ TABLET SR PO SCH ×2 (08:27→16:23)
[2019-09-28] MEDS: AMIODARONE HCL 200 MG TABLET PO SCH (08:27)
[2019-09-28] MEDS: ENOXAPARIN 120MG/0.8ML SYR SUBCUT SCH ×2 (08:29→21:57)
[2019-09-28] MEDS: INSULIN GLARGINE UD 100 UNITS/ML SYR SUBCUT SCH ×2 (10:34→21:55)
[2019-09-28 20:00] VITALS: BP 169/75
[2019-09-29] MEDS: CLONIDINE 0.2MG TABLET PO SCH ×3 (07:08→22:12)
[2019-09-29] MEDS: BLOOD SUGAR DIAGNOSTIC STRIP TEST SCH ×4 (07:09→22:00)
[2019-09-29] MEDS: HYDRALAZINE HCL 25MG TABLET PO SCH ×3 (07:09→22:12)
[2019-09-29] MEDS: INSULIN LISPRO 100 UNITS/ML SUBCUT SCH ×4 (07:13→22:30)
[2019-09-29 07:40] VITALS: BP 154/74
[2019-09-29 08:05] LABS: BASOPHILS % 0.8 % (0.0-2.0); EOSINOPHILS % 2.2 % (0.0-5.0); HEMATOCRIT. 29.6 % (42.0-52.0); LYMPHOCYTES % 18.3 % (20.0-50.0); MEAN CORPUSCULAR VOLUME 88.7 fL (80.0-94.0); MONOCYTES % 8.1 % (2.0-8.0); NEUTROPHILS % 70.6 % (40.0-76.0); PLATELET 365 x1000/uL (130-400); RED BLOOD CELL COUNT 3.33 mill/uL (4.7-6.1); RED CELL DISTRIBUTION WIDTH 14.3 % (11.6-14.6)
[2019-09-29] MEDS: POTASSIUM CHLORIDE 20MEQ TABLET SR PO SCH ×2 (08:47→17:15)
[2019-09-29] MEDS: AMLODIPINE 10MG TABLET PO SCH (08:47)
[2019-09-29] MEDS: ASPIRIN 81MG TABLET PO SCH (08:47)
[2019-09-29] MEDS: AMIODARONE HCL 200 MG TABLET PO SCH (08:47)
[2019-09-29] MEDS: ENOXAPARIN 120MG/0.8ML SYR SUBCUT SCH ×2 (08:48→22:11)
[2019-09-29] MEDS: INSULIN GLARGINE UD 100 UNITS/ML SYR SUBCUT SCH ×2 (09:36→22:31)
[2019-09-29] MEDS: FUROSEMIDE 40MG TABLET PO SCH ×2 (11:35→17:15)
[2019-09-29 13:16] VITALS: BP 139/72
[2019-09-29] MEDS: HYDROCODONE/ACETAMINOPHEN 5/325MG TABLET PO PRN ×2 (15:40→19:53)
[2019-09-29 20:00] VITALS: BP 154/81
[2019-09-29] MEDS: BISACODYL 5MG TABLET PO PRN (22:12)
[2019-09-30 02:46] VITALS: BP 130/85
[2019-09-30 05:02] VITALS: BP 183/97
[2019-10-01] MEDS ORDERED: AMLO10TA80 PO (11:22)
[2019-10-01] MEDS ORDERED: FURO-151 MT (11:22)
[2019-10-01] MEDS ORDERED: CLON1PAT12 TP (11:22)
[2019-10-01] MEDS ORDERED: POTA20TA82 MT (11:22)
[2019-10-01] MEDS ORDERED: TRAM50TA3 MT (11:23)
== END 2019-09-30 04:30 | disposition short-term general hospital (02) | DRG 91 ==
PROVIDERS: ADMIT Psychiatry & Neurology Neurology; ATTEND Internal Medicine
DX: G92 Toxic encephalopathy (principal); I50.43 Acute on chronic combined systolic (congestive) and diastolic (congestive) heart failure; J96.90 Respiratory failure, unspecified, unspecified whether with hypoxia or hypercapnia; N18.6 End stage renal disease; I13.2 Hypertensive heart and chronic kidney disease with heart failure and with stage 5 chronic kidney disease, or end stage renal disease; I42.9 Cardiomyopathy, unspecified; I44.2 Atrioventricular block, complete; E11.52 Type 2 diabetes mellitus with diabetic peripheral angiopathy with gangrene; E44.0 Moderate protein-calorie malnutrition; I96 Gangrene, not elsewhere classified; I69.351 Hemiplegia and hemiparesis following cerebral infarction affecting right dominant side; I25.10 Atherosclerotic heart disease of native coronary artery without angina pectoris; I48.0 Paroxysmal atrial fibrillation; J44.9 Chronic obstructive pulmonary disease, unspecified; L97.519 Non-pressure chronic ulcer of other part of right foot with unspecified severity; D64.9 Anemia, unspecified; E11.22 Type 2 diabetes mellitus with diabetic chronic kidney disease; E11.621 Type 2 diabetes mellitus with foot ulcer; E11.65 Type 2 diabetes mellitus with hyperglycemia; E66.9 Obesity, unspecified; E87.6 Hypokalemia; E87.8 Other disorders of electrolyte and fluid balance, not elsewhere classified; Z79.4 Long term (current) use of insulin; Z68.35 Body mass index [BMI] 35.0-35.9, adult; Z79.899 Other long term (current) drug therapy; Z95.5 Presence of coronary angioplasty implant and graft; Z95.810 Presence of automatic (implantable) cardiac defibrillator; R26.9 Unspecified abnormalities of gait and mobility
CPT/HCPCS: 36415; 80048; 82962; 83735; 85025; 92523; 92610; 93005; 97110; 97162; 97166; 97530; 97535; 97542; J1650; J1815; J2270

== ENCOUNTER 2019-09-30 04:47 | Inpatient (IN) | payer BC, MEDICARE ==
[~2019-09-30] VITALS: Ht 188 cm; Wt 123.4 kg
[2019-09-30] VITALS (10 sets, daily range): BP systolic 92–183; BP diastolic 55–97
[~2019-09-30 04:47] MED LIST changes: -INSULIN GLARGINE UD 100 UNITS/ML SYR SUBCUT SCH
[2019-09-30] MEDS ORDERED: ACETAMINOPHEN 325MG TABLET PO PRN ×2 (06:00→16:00)
[2019-09-30] MEDS ORDERED: CLONIDINE 0.1MG TABLET PO PRN (06:00)
[2019-09-30] MEDS ORDERED: DEXTROSE 50% WATER 50ML SYRINGE IV PRN (06:00)
[2019-09-30] MEDS ORDERED: HYDROCODONE/ACETAMINOPHEN 5/325MG TABLET PO PRN ×2 (06:00)
[2019-09-30] MEDS: BLOOD SUGAR DIAGNOSTIC STRIP TEST SCH ×4 (06:50→20:23)
[2019-09-30] MEDS: INSULIN LISPRO 100 UNITS/ML SUBCUT SCH ×4 (07:20→20:33)
[2019-09-30] MEDS ORDERED: CLONIDINE 0.2MG TABLET PO SCH (08:00)
[2019-09-30 08:05] LABS: BASOPHILS % 1.2 % (0.0-2.0); EOSINOPHILS % 2.7 % (0.0-5.0); HEMATOCRIT. 30.1 % (42.0-52.0); HEMOGLOBIN. 10.1 g/dL (14.0-18.0); LYMPHOCYTES % 21.5 % (20.0-50.0); MEAN CORPUSCULAR HEMOGLOBIN 29.9 pg (28.0-32.0); MEAN CORPUSCULAR VOLUME 89.3 fL (80.0-94.0); MEAN PLATELET VOLUME 8.9 fl (7.4-10.4); MONOCYTES % 8.1 % (2.0-8.0); NEUTROPHILS % 66.5 % (40.0-76.0); PLATELET 386 x1000/uL (130-400); RED BLOOD CELL COUNT 3.37 mill/uL (4.7-6.1); RED CELL DISTRIBUTION WIDTH 14.8 % (11.6-14.6)
[2019-09-30] MEDS: ASPIRIN 81MG TABLET PO SCH (08:54)
[2019-09-30] MEDS: AMLODIPINE 10MG TABLET PO SCH (08:55)
[2019-09-30] MEDS: ENOXAPARIN 120MG/0.8ML SYR SUBCUT SCH ×2 (08:55→20:35)
[2019-09-30] MEDS ORDERED: ENOXAPARIN 120MG/0.8ML SYR SUBCUT SCH (09:00)
[2019-09-30] MEDS: CLONIDINE 0.1MG TABLET PO SCH ×3 (12:00→17:29)
[2019-09-30] MEDS ORDERED: MIDAZOLAM HCL 2 MG/2 ML VIAL ONE (14:56)
[2019-09-30] MEDS ORDERED: LIDOCAINE HCL 1% 20ML VIAL (Pyxis) INJ ONE (14:56)
[2019-09-30] MEDS ORDERED: FENTANYL CITRATE/PF 50MCG/ML 2ML VIAL ONE (14:56)
[2019-09-30] MEDS ORDERED: IOHEXOL-300 100 ML BOTTLE ONE (14:57)
[2019-09-30] MEDS ORDERED: IODIXANOL 320MG/ML 100 ML BOTTLE IV ONE (14:57)
[2019-09-30] MEDS ORDERED: HYDRALAZINE 20MG/ML VIAL ONE (15:34)
[2019-09-30] MEDS ORDERED: ONDANSETRON HCL 4MG/2ML INJ IV PRN (16:00)
[2019-09-30] MEDS ORDERED: ATROPINE SULFATE 1MG/10ML SYR IV PRN (16:00)
[2019-10-01] VITALS (11 sets, daily range): BP systolic 131–168; BP diastolic 64–92
[2019-10-01] MEDS: CLONIDINE 0.1MG TABLET PO SCH ×3 (01:01→12:19)
[2019-10-01 06:35] LABS: BASOPHILS % 0.8 % (0.0-2.0); EOSINOPHILS % 1.8 % (0.0-5.0); HEMATOCRIT. 30.4 % (42.0-52.0); HEMOGLOBIN. 10.1 g/dL (14.0-18.0); LYMPHOCYTES % 16.1 % (20.0-50.0); MEAN CORPUSCULAR HEMOGLOBIN 29.9 pg (28.0-32.0); MEAN CORPUSCULAR VOLUME 89.8 fL (80.0-94.0); MEAN PLATELET VOLUME 8.6 fl (7.4-10.4); MONOCYTES % 7.2 % (2.0-8.0); NEUTROPHILS % 74.1 % (40.0-76.0); PLATELET 347 x1000/uL (130-400); RED BLOOD CELL COUNT 3.39 mill/uL (4.7-6.1); RED CELL DISTRIBUTION WIDTH 14.7 % (11.6-14.6)
[2019-10-01] MEDS: BLOOD SUGAR DIAGNOSTIC STRIP TEST SCH ×2 (06:50→12:13)
[2019-10-01] MEDS: ENOXAPARIN 120MG/0.8ML SYR SUBCUT SCH (08:11)
[2019-10-01] MEDS: ASPIRIN 81MG TABLET PO SCH (08:11)
[2019-10-01] MEDS: INSULIN LISPRO 100 UNITS/ML SUBCUT SCH ×2 (08:11→12:18)
[2019-10-01] MEDS: AMLODIPINE 10MG TABLET PO SCH (08:12)
[2019-10-01] MEDS ORDERED: POTASSIUM CHLORIDE 20MEQ TABLET SR PO SCH (09:00)
[2019-10-01] MEDS ORDERED: HYDRALAZINE HCL 10MG TABLET PO SCH (09:00)
[2019-10-01] MEDS ORDERED: AMLO10TA80 PO (11:22)
[2019-10-01] MEDS ORDERED: POTA20TA82 MT (11:22)
[2019-10-01] MEDS ORDERED: FURO-151 MT (11:22)
[2019-10-01] MEDS ORDERED: CLON1PAT12 TP (11:22)
[2019-10-01] MEDS ORDERED: TRAM50TA3 MT (11:23)
== END 2019-10-01 15:55 | disposition home or self-care (01) | DRG 682 ==
LOC: 3WST 04:47
PROVIDERS: ADMIT Internal Medicine; ATTEND Internal Medicine
PROC: B41F1ZZ Fluoroscopy of Right Lower Extremity Arteries using Low Osmolar Contrast (ICD-10-PCS; principal; 2019-09-30)
DX: N17.9 Acute kidney failure, unspecified (principal); I50.23 Acute on chronic systolic (congestive) heart failure; G93.41 Metabolic encephalopathy; L03.115 Cellulitis of right lower limb; I13.0 Hypertensive heart and chronic kidney disease with heart failure and stage 1 through stage 4 chronic kidney disease, or unspecified chronic kidney disease; E44.0 Moderate protein-calorie malnutrition; E11.52 Type 2 diabetes mellitus with diabetic peripheral angiopathy with gangrene; I44.2 Atrioventricular block, complete; I42.9 Cardiomyopathy, unspecified; E87.6 Hypokalemia; E87.8 Other disorders of electrolyte and fluid balance, not elsewhere classified; E66.9 Obesity, unspecified; E11.65 Type 2 diabetes mellitus with hyperglycemia; D64.9 Anemia, unspecified; E11.22 Type 2 diabetes mellitus with diabetic chronic kidney disease; N18.9 Chronic kidney disease, unspecified; E11.621 Type 2 diabetes mellitus with foot ulcer; I48.0 Paroxysmal atrial fibrillation; L97.519 Non-pressure chronic ulcer of other part of right foot with unspecified severity; I70.209 Unspecified atherosclerosis of native arteries of extremities, unspecified extremity; Z20.828 Contact with and (suspected) exposure to other viral communicable diseases; N18.3 Chronic kidney disease, stage 3 (moderate); Z68.35 Body mass index [BMI] 35.0-35.9, adult; I69.30 Unspecified sequelae of cerebral infarction; Z95.0 Presence of cardiac pacemaker; Z79.899 Other long term (current) drug therapy
CPT/HCPCS: 36246; 36415; 75710; 80048; 83735; 85025; 93005; C1760; C1769; C1893; J0360; J1644; J1650; J1815; J2250; J3010; J3490; Q9967